=== PATIENT | male | born 1945 | race Caucasian/White ===

== ENCOUNTER → 2020-10-29 | Outpatient (CLI) | payer MEDICARE ==
[2020-10-29 11:58] LABS: APPEARANCE, BODY FLUID CLOUDY
--- NOTE | 2020-10-29 16:28 | REP ---
INDICATION: LT KNEE PAIN. COMPARISON: None. TECHNIQUE: The procedure was performed under the direct supervision of Dr. Dewitt. The risks and benefits of the procedure were explained to the patient and informed consent was obtained. The left tibiofemoral joint space was localized using fluoroscopic guidance. The skin was prepped and draped in a sterile fashion. 1% lidocaine was used as a local anesthetic. Using fluoroscopic guidance a 22 gauge spinal needle was inserted and advanced into the joint. 8 mL of red colored fluid was withdrawn and sent to the lab for analysis. The needle was then removed. The patient tolerated the procedure well and there were no immediate complications. Less than 6 seconds of fluoro time was utilized for this procedure. FINDINGS: None IMPRESSION: Fluoro guidance for left knee aspiration. <Electronically signed by Arslan De La Fuente > 10/29/20 1527 <Electronically signed by Andrea Dewitt > 10/29/20 1843
== END ==
LOC: M RADPRO 09:46
PROVIDERS: ATTEND Orthopaedic Surgery Adult Reconstructive Orthopaedic Surgery
DX: M25.562 Pain in left knee (principal)

== ENCOUNTER → 2024-01-18 | Outpatient (CLI) | payer MEDICARE | LOC: M PLAIMG 09:40 | PROVIDERS: ATTEND Internal Medicine Pulmonary Disease | DX: R06.02 Shortness of breath (principal); J98.11 Atelectasis; I25.10 Atherosclerotic heart disease of native coronary artery without angina pectoris; I70.0 Atherosclerosis of aorta; Z98.84 Bariatric surgery status; N28.1 Cyst of kidney, acquired; Z87.81 Personal history of (healed) traumatic fracture ==

== ENCOUNTER → 2024-02-02 | Outpatient (CLI) | payer MEDICARE ==
[~2024-02-02] MED LIST: METHACHOLINE KIT (6 VIAL.NEB PREMIX) INH ONE
== END ==
LOC: M CARPUL 08:30
PROVIDERS: ATTEND Internal Medicine Pulmonary Disease
DX: R06.02 Shortness of breath (principal)

== ENCOUNTER 2024-03-15 13:46 | Emergency (ER) | payer MEDICARE ==
[~2024-03-15] VITALS: Ht 170.2 cm; Wt 143.2 kg
[2024-03-15] MEDS: TETRACAINE 0.5% OPHTH SOLN 4ML OS ONE (17:10)
[2024-03-15] MEDS: FLUORESCEIN OPHTH 1MG STRIP OS ONE (17:10)
[2024-03-15] MEDS ORDERED: CARB15DR33 OS (17:32)
[2024-03-15 17:45] VITALS: BP 175/72; TEMP 96.9; O2SAT 97
== END 2024-03-15 17:42 | disposition home or self-care (01) ==
LOC: M ED 13:46
DX: H57.12 Ocular pain, left eye (principal); I10 Essential (primary) hypertension

== ENCOUNTER 2024-05-10 17:51 | Observation (INO) | payer MEDICARE ==
[~2024-05-10] VITALS: Ht 170.2 cm; Wt 145.0 kg
[~2024-05-10 17:51] MED LIST changes: +CARB15DR33 OS; -METHACHOLINE KIT (6 VIAL.NEB PREMIX) INH ONE
[2024-05-10] MEDS ORDERED: ALLO300T2 PO (18:03)
[2024-05-10] MEDS ORDERED: GABA-284 (18:03)
[2024-05-10] MEDS ORDERED: HYDR-3713 PO (18:03)
[2024-05-10] MEDS ORDERED: ALBU8.5H INH (18:03)
[2024-05-10] MEDS: ALBUTEROL SULFATE 2.5MG/0.5ML INH NEB SOLN INH ONE (18:29)
[2024-05-10] MEDS: IPRATROPIUM 0.5MG/ALBUTEROL 2.5MG INH SOL UD 3ML (DUONEB) NEB ONE (18:29)
[2024-05-10 18:38] LABS: VENOUS BASE EXCESS 3.3 (-2.0-2.0); VENOUS HCO3 30.5 MMOL/L (23.0-27.0); VENOUS O2 SATURATION 89.6 % (60.0-80.0); VENOUS PARTIAL PRESSURE CO2 58.8 mmHg (38.0-50.0); VENOUS PARTIAL PRESSURE O2 59.1 mmHg (30.0-50.0); VENOUS PH 7.333 UNITS (7.330-7.430); VENOUS STANDARD HCO3 27.3 MMOL/L; VENOUS TOTAL CO2 32.3 MMOL/L (24.0-28.0)
[2024-05-10 18:46] LABS: BASO % 0.3 % (0.0-1.0); EOS # 0.2 10^3/uL (0.0-0.5); EOS % 3.2 % (0.0-3.0); HEMATOCRIT 36.4 % (42.0-52.0); HEMOGLOBIN 11.5 g/dl (13.5-17.5); LYMPH # 0.9 10^3/uL (1.5-5.0); LYMPH % 12.5 % (24.0-44.0); MEAN CORPUSCULAR HEMOGLOBIN 30.9 pg (27.0-33.0); MEAN CORPUSCULAR HGB CONC 31.6 g/dl (32.0-36.5); MEAN CORPUSCULAR VOLUME 97.8 fl (80.0-96.0); MONO # 1.2 10^3/uL (0.0-0.8); MONO % 15.9 % (2.0-8.0); NEUTROPHILS # 4.9 10^3/uL (1.5-8.5); NEUTROPHILS % 67.8 % (36.0-66.0); PLATELET COUNT, AUTOMATED 189 10^3/uL (150-450); RED BLOOD COUNT 3.72 10^6/uL (4.30-6.10); WHITE BLOOD COUNT 7.2 10^3/uL (4.0-10.0)
[2024-05-10] MEDS: methylPREDNISolone 125MG 2ML VIAL IV ONE (18:53)
[2024-05-10 19:05] LABS: INR 1.26; PARTIAL THROMBOPLASTIN TIME 42.8 SECONDS (24.8-34.2); PROTHROMBIN TIME 16.1 SECONDS (12.5-14.5)
[2024-05-10 19:08] LABS: LIPASE 20 U/L (12-53)
[2024-05-10 19:09] LABS: CPK CREATINE PHOSPHOKINASE 177 U/L (46-171)
[2024-05-10 19:10] LABS: ALKALINE PHOSPHATASE 127 U/L (40-129); ALT/SGPT 17 U/L (7.0-40); AST/SGOT 31 U/L (<34); BILIRUBIN,DIRECT 0.2 MG/DL (<0.4); BILIRUBIN,TOTAL 0.4 MG/DL (0.3-1.2); BLOOD UREA NITROGEN 27 MG/DL (9-23); CALCIUM LEVEL 9.1 MG/DL (8.3-10.6); CARBON DIOXIDE LEVEL 31 MMOL/L (20-31); CHLORIDE LEVEL 103 MMOL/L (98-107); CK-MB VALUE MASS 5.6 NG/ML (<3.6); CREATININE FOR GFR 1.15 MG/DL (0.70-1.30); FREE T4 1.29 NG/DL (0.89-1.76); GLOMERULAR FILTRATION RATE > 60.0 (>42); GLUCOSE, FASTING 103 MG/DL (74-106); MB/CK RELATIVE INDEX 3.16 (< OR =4); POTASSIUM SERUM 4.4 MMOL/L (3.5-5.1); SODIUM LEVEL 140 MMOL/L (136-145); THYROID STIMULATING HORMONE 7.319 uIU/ML (0.55-4.78); TOTAL PROTEIN 6.6 G/DL (5.7-8.2)
[2024-05-10] MEDS ORDERED: ISOVUE-370 76% 100ML VIAL As Ordered ONE (19:10)
[2024-05-10 20:24] LABS: MB/CK RELATIVE INDEX 2.8 (< OR =4)
[2024-05-10] MEDS ORDERED: THERTAB52 PO (23:35)
[2024-05-10] MEDS ORDERED: BREO1INH INH (23:35)
[2024-05-10] MEDS ORDERED: TIZA10TA PO (23:35)
[2024-05-10] MEDS ORDERED: FAMO-142 PO (23:35)
[2024-05-10] MEDS ORDERED: ELIQ5TAB PO (23:35)
[2024-05-10] MEDS ORDERED: AMIO200T49 PO (23:35)
[2024-05-10] MEDS ORDERED: GABA-284 PO (23:35)
[2024-05-10] MEDS ORDERED: SENN-186 PO (23:35)
[2024-05-10] MEDS ORDERED: FURO40TA2 PO (23:35)
[2024-05-10] MEDS ORDERED: BISO10TA13 PO (23:35)
[2024-05-10] MEDS ORDERED: HOME MED LIST COMPLETE! XX SCH (23:40)
[2024-05-11] MEDS ORDERED: MOM 30ML SUSPENSION UDC PO PRN (00:55)
[2024-05-11] MEDS ORDERED: MAALOX 30 ML SUSP *UDC PO PRN (00:55)
[2024-05-11] MEDS ORDERED: SENNA 8.6 MG TAB (SENOKOT) PO PRN (00:55)
[2024-05-11] MEDS ORDERED: ACETAMINOPHEN 325 MG TAB PO PRN (00:55)
[2024-05-11] MEDS: LEVALBUTEROL 1.25MG 0.5ML CONCENTRATE NEB NEB SCH (01:44)
[2024-05-11] MEDS: UNRESOLVED CLARIFICATION ENTRY XX STA (02:18)
[2024-05-11] MEDS: ceFAZolin SODIUM 2 GM in DEXTROSE 5% (D5W) ADV/MINI-BAG 50 ML IV ONE (02:27)
[2024-05-11] MEDS: tiZANidine 4 MG TAB PO SCH (02:27)
[2024-05-11 06:24] LABS: HEMATOCRIT 34.1 % (42.0-52.0); MEAN CORPUSCULAR HEMOGLOBIN 31.3 pg (27.0-33.0); MEAN CORPUSCULAR HGB CONC 32.3 g/dl (32.0-36.5); MEAN CORPUSCULAR VOLUME 97.2 fl (80.0-96.0); PLATELET COUNT, AUTOMATED 181 10^3/uL (150-450); RED BLOOD COUNT 3.51 10^6/uL (4.30-6.10)
[2024-05-11] MEDS: methylPREDNISolone 125MG 2ML VIAL IV SCH (06:45)
[2024-05-11 07:12] LABS: ALBUMIN 2.7 G/DL (3.2-5.2); ALKALINE PHOSPHATASE 108 U/L (40-129); ALT/SGPT 15 U/L (7.0-40); AST/SGOT 30 U/L (<34); BILIRUBIN,TOTAL 0.3 MG/DL (0.3-1.2); BLOOD UREA NITROGEN 26 MG/DL (9-23); CALCIUM LEVEL 8.9 MG/DL (8.3-10.6); CARBON DIOXIDE LEVEL 30 MMOL/L (20-31); CHLORIDE LEVEL 103 MMOL/L (98-107); CREATININE FOR GFR 1.15 MG/DL (0.70-1.30); GLOMERULAR FILTRATION RATE > 60.0 (>42); GLUCOSE, FASTING 157 MG/DL (74-106); SODIUM LEVEL 140 MMOL/L (136-145); TOTAL PROTEIN 6.1 G/DL (5.7-8.2)
[2024-05-11] MEDS: DOCUSATE SODIUM 100MG CAPSULE PO SCH (08:10)
[2024-05-11] MEDS: PANTOPRAZOLE 40MG VIAL IV SCH (08:10)
[2024-05-11] MEDS: allopurinoL 300 MG TAB PO SCH (08:10)
[2024-05-11] MEDS: GABAPENTIN 400MG CAP PO SCH (08:10)
[2024-05-11] MEDS: FUROSEMIDE 40 MG TAB PO SCH (08:11)
[2024-05-11] MEDS: APIXABAN 5 MG TAB (ELIQUIS) PO SCH (08:11)
[2024-05-11] MEDS: AMIODARONE 200 MG TAB (PACERONE) PO SCH (08:11)
[2024-05-11] MEDS: bisoproloL fumarate 10 MG TAB PO SCH (08:28)
[2024-05-11] MEDS: ceFAZolin SODIUM 2 GM in DEXTROSE 5% (D5W) ADV/MINI-BAG 50 ML IV SCH (09:44)
[2024-05-11 13:45] VITALS: BP 130/90; TEMP 98.1; O2SAT 95
[2024-05-11] MEDS: FUROSEMIDE 40MG/4ML VIAL IV SCH (15:25)
[2024-05-11] MEDS: CEPHALEXIN 500 MG CAP PO SCH (16:48)
[2024-05-11] MEDS ORDERED: CEPHALEXIN 500 MG CAP PO SCH (17:00)
[2024-05-11 20:24] VITALS: BP 170/68; TEMP 99.1; O2SAT 99
[2024-05-11 21:30] VITALS: BP 162/64
[2024-05-11] MEDS: NORCO, ANEXSIA 5/325MG TABLET (HYDROcodone/ACETAMINOPHEN) PO PRN (22:12)
[2024-05-11 23:07] VITALS: TEMP 99.1
[2024-05-12 00:30] VITALS: BP 132/56
[2024-05-12 03:36] VITALS: BP 131/59; TEMP 96.4; TEMP 97.9; O2SAT 93
[2024-05-12 05:52] VITALS: O2SAT 94
[2024-05-12] MEDS ORDERED: CEPH500C PO (06:56)
[2024-05-12 08:44] VITALS: BP 137/87
[2024-05-12] MEDS: FUROSEMIDE 40MG/4ML VIAL IV ONE (08:44)
[2024-05-12 08:47] LABS: IONIZED CALCIUM 4.5 MG/DL (4.5-5.3)
[2024-05-12 09:23] LABS: CALCIUM LEVEL 10.2 MG/DL (8.3-10.6); CREATININE FOR GFR 1.24 MG/DL (0.70-1.30); GLOMERULAR FILTRATION RATE 59.9 (>42); MAGNESIUM LEVEL 2.1 MG/DL (1.8-2.4); POTASSIUM SERUM 4.4 MMOL/L (3.5-5.1)
[2024-05-12] MEDS ORDERED: MUCI1TAB16 PO (10:25)
[2024-05-12] MEDS ORDERED: BENZ-18 PO (10:27)
[2024-05-12] MEDS: BENZONATATE 100MG CAPSULE PO SCH (11:42)
[2024-05-12] MEDS: guaiFENesin ER TABLET 600 MG TAB PO ONE (11:42)
[2024-05-12 12:00] VITALS: BP 149/84; TEMP 97.9; O2SAT 96
== END 2024-05-12 13:41 | disposition home or self-care (01) ==
LOC: M ED 17:51 → EDBD 17:51 → INTOOBSV 17:52 → M ED INP 17:52 → M MSPAV 05-11 13:43
PROVIDERS: ADMIT Student in an Organized Health Care Education/Training Program; ATTEND General Practice
DX: L03.115 Cellulitis of right lower limb (principal); R59.0 Localized enlarged lymph nodes; D38.1 Neoplasm of uncertain behavior of trachea, bronchus and lung; R09.02 Hypoxemia; R60.0 Localized edema; M79.89 Other specified soft tissue disorders; R21 Rash and other nonspecific skin eruption; R06.02 Shortness of breath; I48.91 Unspecified atrial fibrillation; J44.9 Chronic obstructive pulmonary disease, unspecified; D64.9 Anemia, unspecified; R94.6 Abnormal results of thyroid function studies; I36.1 Nonrheumatic tricuspid (valve) insufficiency; I35.8 Other nonrheumatic aortic valve disorders; I10 Essential (primary) hypertension; E78.00 Pure hypercholesterolemia, unspecified; M10.9 Gout, unspecified; E66.9 Obesity, unspecified; M48.00 Spinal stenosis, site unspecified; Z87.891 Personal history of nicotine dependence; Z90.49 Acquired absence of other specified parts of digestive tract; Z98.84 Bariatric surgery status; Z79.899 Other long term (current) drug therapy; Z79.01 Long term (current) use of anticoagulants; Z79.51 Long term (current) use of inhaled steroids
CPT/HCPCS: 36415; 71045; 71275; 80047; 80048; 80053; 80076; 82330; 82550; 82553; 82803; 83605; 83690; 83735; 83880; 84145; 84439; 84443; 84484; 85025; 85027; 85610; 85730; 87040; 87486; 87581; 87633; 87798; 93005; 93041; 93306; 93971; 94640; 94760; 96365; 96375; 96376; 97161; 97165; 97530; 99285; G0378; J0690; J1940; J2470; J2919; Q9967

== ENCOUNTER → 2024-06-11 | Outpatient (CLI) | payer MEDICARE ==
[~2024-06-11] MED LIST changes: +ALBU8.5H INH; +ALLO300T2 PO; +AMIO200T49 PO; +BENZ-18 PO; +BISO10TA13 PO; +BREO1INH INH; +CEPH500C PO; +ELIQ5TAB PO; +FAMO-142 PO; +FURO40TA2 PO; +GABA-284; +GABA-284 PO; +HYDR-3713 PO; +MUCI1TAB16 PO; +SENN-186 PO; +THERTAB52 PO; +TIZA10TA PO
== END ==
LOC: M PLARAD 12:20
PROVIDERS: ATTEND Internal Medicine Pulmonary Disease
DX: R91.8 Other nonspecific abnormal finding of lung field (principal)
CPT/HCPCS: 78815; A9552

== ENCOUNTER 2024-08-23 12:05 | Inpatient (IN) | payer MEDICARE ==
[~2024-08-23] VITALS: Ht 170.2 cm; Wt 142.7 kg
[~2024-08-23 12:05] MED LIST changes: -AMIO200T49 PO; +AMIO200T54 PO
[2024-08-23 13:04] LABS: BASO # 0.1 10^3/uL (0.0-0.2); BASO % 0.8 % (0.0-1.0); EOS # 0.2 10^3/uL (0.0-0.5); EOS % 3.6 % (0.0-3.0); LYMPH # 1.0 10^3/uL (1.5-5.0); LYMPH % 16.7 % (24.0-44.0); MONO # 0.7 10^3/uL (0.0-0.8); MONO % 11.4 % (2.0-8.0); NEUTROPHILS # 4.0 10^3/uL (1.5-8.5); NEUTROPHILS % 67.2 % (36.0-66.0); PLATELET COUNT, AUTOMATED 201 10^3/uL (150-450)
[2024-08-23 13:27] LABS: CPK CREATINE PHOSPHOKINASE 160.0 U/L (46-171)
[2024-08-23 13:32] LABS: ALT/SGPT 19.0 U/L (7.0-40); AST/SGOT 40.0 U/L (<34); CALCIUM LEVEL 9.0 MG/DL (8.3-10.6); CARBON DIOXIDE LEVEL 30.0 MMOL/L (20-31); CHLORIDE LEVEL 104.0 MMOL/L (98-107); CREATININE FOR GFR 1.32 MG/DL (0.70-1.30); GLOMERULAR FILTRATION RATE 54.5 (>35); MAGNESIUM LEVEL 2.0 MG/DL (1.8-2.4); POTASSIUM SERUM 4.9 MMOL/L (3.5-5.1); SODIUM LEVEL 145.0 MMOL/L (136-145); THYROXINE (T4) 5.3 UG/DL (4.5-10.9)
[2024-08-23 13:54] LABS: CK-MB VALUE MASS 5.5 NG/ML (<3.6); MB/CK RELATIVE INDEX 3.43 (< OR =4)
[2024-08-23] MEDS: FUROSEMIDE 40 MG/4 ML VIAL IV ONE ×2 (13:57→20:51)
[2024-08-23] MEDS ORDERED: SYST1SOL4 OU (14:16)
[2024-08-23] MEDS ORDERED: HYDR-3363 PO (14:16)
[2024-08-23] MEDS ORDERED: HOME MED LIST COMPLETE! XX SCH (14:20)
[2024-08-23 14:28] LABS: CPK CREATINE PHOSPHOKINASE 144.0 U/L (46-171)
[2024-08-23 14:50] LABS: CK-MB VALUE MASS 6.9 NG/ML (<3.6); MB/CK RELATIVE INDEX 4.79 (< OR =4)
[2024-08-23] MEDS ORDERED: MAALOX 30 ML SUSP *UDC PO PRN (16:20)
[2024-08-23] MEDS ORDERED: ACETAMINOPHEN 325 MG TAB PO PRN (16:20)
[2024-08-23] MEDS ORDERED: MOM 30 ML SUSPENSION UDC PO PRN (16:20)
[2024-08-23] MEDS ORDERED: ALBUTEROL 90 MCG/ACT 8 GM HFA INHALER INH PRN (16:35)
[2024-08-23 17:35] VITALS: TEMP 96.9; O2SAT 96
[2024-08-23 17:36] VITALS: BP 204/86
[2024-08-23] MEDS: **hydrALAZINE** 10 MG TAB PO ONE (18:03)
[2024-08-23 19:05] VITALS: BP_SYST 172; TEMP 97.3; O2SAT 96
[2024-08-23] MEDS: SYMBICORT 80/4.5MCG INHALER 6GM INH SCH (19:52)
[2024-08-23] MEDS: SENNOSIDES/DOCUSATE SODIUM 8.6 MG/50MG TAB PO SCH (20:48)
[2024-08-23] MEDS: APIXABAN 5 MG TAB PO SCH (20:48)
[2024-08-23] MEDS: NYSTATIN 100,000 UNITS/GM TOPICAL PWD 15GM TOP SCH (21:32)
[2024-08-23] MEDS ORDERED: hydrALAZINE 20 MG/ML 1 ML VIAL IV PRN (23:00)
[2024-08-23 23:31] VITALS: BP 178/72; TEMP 97; O2SAT 95
[2024-08-24 03:31] VITALS: BP 184/74; TEMP 97; O2SAT 94
[2024-08-24 07:35] LABS: CALCIUM LEVEL 8.9 MG/DL (8.3-10.6); CARBON DIOXIDE LEVEL 33.0 MMOL/L (20-31); CHLORIDE LEVEL 103.0 MMOL/L (98-107); CREATININE FOR GFR 1.27 MG/DL (0.70-1.30); GLOMERULAR FILTRATION RATE 57.1 (>35); MAGNESIUM LEVEL 1.9 MG/DL (1.8-2.4); POTASSIUM SERUM 4.3 MMOL/L (3.5-5.1); SODIUM LEVEL 145.0 MMOL/L (136-145)
[2024-08-24 07:40] VITALS: BP 170/72; TEMP 96.6; O2SAT 90
[2024-08-24] MEDS: amLODIPine 10 MG TAB PO SCH (10:19)
[2024-08-24] MEDS: **hydrALAZINE** 10 MG TAB PO SCH (10:20)
[2024-08-24] MEDS: FUROSEMIDE 40 MG/4 ML VIAL IV SCH (10:22)
[2024-08-24 11:55] VITALS: BP 164/76; TEMP 97.3; O2SAT 95
[2024-08-24 15:54] VITALS: BP 148/64; TEMP 97.1; O2SAT 94
[2024-08-24 19:37] VITALS: BP 176/68; TEMP 97; O2SAT 95
[2024-08-24 23:42] VITALS: BP 168/68; TEMP 97.2; O2SAT 97
[2024-08-25 04:21] VITALS: BP 168/72; TEMP 97.8; O2SAT 94
[2024-08-25 06:36] LABS: CALCIUM LEVEL 9.1 MG/DL (8.3-10.6); CARBON DIOXIDE LEVEL 34.0 MMOL/L (20-31); CHLORIDE LEVEL 101.0 MMOL/L (98-107); CREATININE FOR GFR 1.21 MG/DL (0.70-1.30); GLOMERULAR FILTRATION RATE 60.5 (>35); MAGNESIUM LEVEL 1.8 MG/DL (1.8-2.4); POTASSIUM SERUM 3.8 MMOL/L (3.5-5.1); SODIUM LEVEL 144.0 MMOL/L (136-145)
[2024-08-25 07:24] VITALS: BP 144/68; TEMP 97.3; O2SAT 95
[2024-08-25] MEDS: POTASSIUM CHLORIDE 10MEQ SR TABLET PO ONE (09:05)
[2024-08-25] MEDS: MAGNESIUM OXIDE 400 MG TAB PO ONE (09:07)
[2024-08-25 09:11] VITALS: BP 144/68
[2024-08-25 11:39] VITALS: BP 142/64; TEMP 97.7; O2SAT 94
[2024-08-25] MEDS ORDERED: FURO40TA2 PO (11:43)
[2024-08-25] MEDS ORDERED: HYDR-161 PO (11:43)
[2024-08-25] MEDS ORDERED: GABA-284 PO (11:43)
== END 2024-08-25 13:06 | disposition home or self-care (01) | DRG 291 ==
LOC: M ED 12:05 → M ED INP 16:19 → M PCU 17:27
PROVIDERS: ADMIT Student in an Organized Health Care Education/Training Program; ATTEND Student in an Organized Health Care Education/Training Program
DX: I11.0 Hypertensive heart disease with heart failure (principal); I50.33 Acute on chronic diastolic (congestive) heart failure; I48.91 Unspecified atrial fibrillation; J45.909 Unspecified asthma, uncomplicated; D64.9 Anemia, unspecified; M10.9 Gout, unspecified; R53.1 Weakness; R00.1 Bradycardia, unspecified; K21.9 Gastro-esophageal reflux disease without esophagitis; E02 Subclinical iodine-deficiency hypothyroidism; R06.89 Other abnormalities of breathing; T46.2X5A Adverse effect of other antidysrhythmic drugs, initial encounter; Z79.01 Long term (current) use of anticoagulants; Z79.899 Other long term (current) drug therapy; Z91.118 Patient's noncompliance with dietary regimen for other reason; Z91.148 Patient's other noncompliance with medication regimen for other reason; Z90.49 Acquired absence of other specified parts of digestive tract; Z98.84 Bariatric surgery status

== ENCOUNTER → 2024-09-11 | Outpatient (CLI) | payer MEDICARE ==
[~2024-09-11] MED LIST changes: +HYDR-161 PO; +HYDR-3363 PO; +SYST1SOL4 OU
== END ==
LOC: M PLAIMG 09:55
PROVIDERS: ATTEND Internal Medicine Pulmonary Disease
DX: J98.11 Atelectasis (principal)

== ENCOUNTER 2024-12-12 22:11 | Inpatient (IN) | payer MEDICARE ==
[~2024-12-12] VITALS: Ht 170.2 cm; Wt 132.0 kg
[2024-12-12 22:39] LABS: BASO # 0.0 10^3/uL (0.0-0.2); BASO % 0.4 % (0.0-1.0); EOS # 0.2 10^3/uL (0.0-0.5); EOS % 2.6 % (0.0-3.0); LYMPH # 1.8 10^3/uL (1.5-5.0); LYMPH % 23.9 % (24.0-44.0); MONO # 0.8 10^3/uL (0.0-0.8); MONO % 10.8 % (2.0-8.0); NEUTROPHILS # 4.7 10^3/uL (1.5-8.5); NEUTROPHILS % 61.9 % (36.0-66.0); PLATELET COUNT, AUTOMATED 191 10^3/uL (150-450)
[2024-12-12 22:52] LABS: INR 1.01
[2024-12-12 22:58] LABS: CALCIUM LEVEL 8.8 MG/DL (8.3-10.6); CARBON DIOXIDE LEVEL 32 MMOL/L (20-31); CHLORIDE LEVEL 103 MMOL/L (98-107); CREATININE FOR GFR 1.36 MG/DL (0.70-1.30); GLOMERULAR FILTRATION RATE 52.6 (>35); POTASSIUM SERUM 4.5 MMOL/L (3.5-5.1); SODIUM LEVEL 143 MMOL/L (136-145)
[2024-12-13 00:29] LABS: ALT/SGPT 10 U/L (7.0-40); AST/SGOT 25 U/L (<34)
[2024-12-13] MEDS ORDERED: ISOVUE-370 76% 100 ML VIAL As Ordered ONE (01:08)
[2024-12-13] MEDS: PIPERACILLIN/TAZOBACTAM SOD 3.375 GM in DEXTROSE 5% (D5W) ADV/MINI-BAG 50 ML IV ONE (04:49)
[2024-12-13] MEDS ORDERED: ACETAMINOPHEN 325 MG TAB PO PRN (05:20)
[2024-12-13] MEDS: LR 1,000 ML IV SCH (06:10)
[2024-12-13 07:05] LABS: INR 1.03
[2024-12-13] MEDS: SYMBICORT 80/4.5MCG INHALER 6GM INH SCH (07:18)
[2024-12-13 08:19] LABS: BASO # 0.0 10^3/uL (0.0-0.2); BASO % 0.3 % (0.0-1.0); EOS # 0.2 10^3/uL (0.0-0.5); EOS % 2.6 % (0.0-3.0); LYMPH # 1.3 10^3/uL (1.5-5.0); LYMPH % 18.8 % (24.0-44.0); MONO # 0.7 10^3/uL (0.0-0.8); MONO % 9.7 % (2.0-8.0); NEUTROPHILS # 4.8 10^3/uL (1.5-8.5); NEUTROPHILS % 68.3 % (36.0-66.0); PLATELET COUNT, AUTOMATED 180 10^3/uL (150-450)
[2024-12-13 08:49] LABS: CALCIUM LEVEL 8.6 MG/DL (8.3-10.6); CARBON DIOXIDE LEVEL 30.0 MMOL/L (20-31); CHLORIDE LEVEL 106.0 MMOL/L (98-107); CREATININE FOR GFR 1.29 MG/DL (0.70-1.30); GLOMERULAR FILTRATION RATE 56.1 (>35); MAGNESIUM LEVEL 2.2 MG/DL (1.8-2.4); POTASSIUM SERUM 4.5 MMOL/L (3.5-5.1); SODIUM LEVEL 145.0 MMOL/L (136-145)
[2024-12-13] MEDS ORDERED: HYDR-161 PO (08:54)
[2024-12-13] MEDS ORDERED: FURO40TA2 PO (08:54)
[2024-12-13] MEDS ORDERED: LEVO100T5 PO (08:58)
[2024-12-13] MEDS ORDERED: QUIN324C2 PO (08:58)
[2024-12-13 09:00] VITALS: BP 104/59
[2024-12-13] MEDS ORDERED: NYST1POW3 TOP (09:00)
[2024-12-13] MEDS ORDERED: D200CAP PO (09:00)
[2024-12-13] MEDS ORDERED: HYDR-3713 PO (09:00)
[2024-12-13] MEDS ORDERED: HOME MED LIST COMPLETE! XX SCH (09:05)
[2024-12-13] MEDS: PANTOPRAZOLE 40MG VIAL IV SCH (10:10)
[2024-12-13] MEDS: SUCRALFATE 1 GM TAB PO SCH (10:10)
[2024-12-13] MEDS: LEVOTHYROXINE 100 MCG TABLET (0.1 MG) PO SCH (10:11)
[2024-12-13] MEDS: PIPERACILLIN/TAZOBACTAM SOD 3.375 GM in DEXTROSE 5% (D5W) ADV/MINI-BAG 50 ML IV SCH (11:51)
[2024-12-13 15:00] VITALS: BP 161/62; TEMP 97.5; O2SAT 97
[2024-12-13] MEDS: POLYETHYLENE GLYCOL 238 GM BOTTLE PO ONE (17:13)
[2024-12-13 21:03] VITALS: BP 94/63; TEMP 97.9; O2SAT 97
[2024-12-14] VITALS (11 sets, daily range): BP systolic 106–159; BP diastolic 57–78; TEMP 97.5–98.4; O2SAT 95–99
[2024-12-14 06:49] LABS: BASO # 0.0 10^3/uL (0.0-0.2); BASO % 0.3 % (0.0-1.0); EOS # 0.4 10^3/uL (0.0-0.5); EOS % 7.4 % (0.0-3.0); LYMPH # 1.2 10^3/uL (1.5-5.0); LYMPH % 20.7 % (24.0-44.0); MONO # 0.6 10^3/uL (0.0-0.8); MONO % 10.3 % (2.0-8.0); NEUTROPHILS # 3.6 10^3/uL (1.5-8.5); NEUTROPHILS % 60.8 % (36.0-66.0); PLATELET COUNT, AUTOMATED 190 10^3/uL (150-450)
[2024-12-14 07:18] LABS: CALCIUM LEVEL 8.8 MG/DL (8.3-10.6); CARBON DIOXIDE LEVEL 28.0 MMOL/L (20-31); CHLORIDE LEVEL 107.0 MMOL/L (98-107); CREATININE FOR GFR 1.33 MG/DL (0.70-1.30); GLOMERULAR FILTRATION RATE 54.0 (>35); MAGNESIUM LEVEL 2.0 MG/DL (1.8-2.4); POTASSIUM SERUM 4.0 MMOL/L (3.5-5.1); SODIUM LEVEL 144.0 MMOL/L (136-145)
[2024-12-14] MEDS: POLYETHYLENE GLYCOL 238 GM BOTTLE PO ONE (09:20)
[2024-12-14] MEDS ORDERED: LIDOCAINE 2% 100 MG/5 ML SDV (FOR ANES.) As Ordered ONE (13:49)
[2024-12-14 18:26] LABS: CREATININE FOR GFR 1.27 MG/DL (0.70-1.30); GLOMERULAR FILTRATION RATE 57.1 (>35)
[2024-12-14 19:42] LABS: CALCIUM LEVEL 9.0 MG/DL (8.3-10.6); CARBON DIOXIDE LEVEL 25.0 MMOL/L (20-31); CHLORIDE LEVEL 108.0 MMOL/L (98-107); POTASSIUM SERUM 4.0 MMOL/L (3.5-5.1); SODIUM LEVEL 144.0 MMOL/L (136-145)
== END 2024-12-14 19:03 | disposition home or self-care (01) | DRG 378 ==
LOC: EDBD 22:11 → M ED 22:11 → M ED INP 12-13 05:18 → M MSPAV 12-13 14:46
PROVIDERS: ADMIT Student in an Organized Health Care Education/Training Program; ATTEND Student in an Organized Health Care Education/Training Program
PROC: 30233N1 Transfusion of Nonautologous Red Blood Cells into Peripheral Vein, Percutaneous Approach (ICD-10-PCS; 2024-12-13)
PROC: 0DBK8ZX Excision of Ascending Colon, Via Natural or Artificial Opening Endoscopic, Diagnostic (ICD-10-PCS; principal; 2024-12-14 13:55)
DX: K57.31 Diverticulosis of large intestine without perforation or abscess with bleeding (principal); D62 Acute posthemorrhagic anemia; E86.0 Dehydration; M10.9 Gout, unspecified; I48.91 Unspecified atrial fibrillation; I10 Essential (primary) hypertension; G89.29 Other chronic pain; G62.9 Polyneuropathy, unspecified; J44.9 Chronic obstructive pulmonary disease, unspecified; J45.909 Unspecified asthma, uncomplicated; E03.9 Hypothyroidism, unspecified; L29.9 Pruritus, unspecified; D12.8 Benign neoplasm of rectum; D12.2 Benign neoplasm of ascending colon; Z79.01 Long term (current) use of anticoagulants; Z79.899 Other long term (current) drug therapy; Z79.890 Hormone replacement therapy